=== PATIENT | female | born 1965 | race Caucasian/White ===

== ENCOUNTER 2016-05-11 11:11 | Emergency (ER) | payer BC ==
[~2016-05-11] VITALS: Ht 170.2 cm; Wt 86.0 kg
[~2016-05-11 11:11] MED LIST: CYCL5TAB PO; ESCI10TA PO; ESTR0.053 TD; LISI10TA3 PO; MEDR4PAK PO; RANI150C PO
[2016-05-11 11:19] VITALS: BP 118/75; PULSE 72; RESP 14; TEMP 98; O2SAT 99
[2016-05-11 12:14] LABS: BASOPHIL % 0.5 % (0.0-2.0); EOSINOPHIL # 0.1 TH/MM3 (0-0.4); HEMO FLAGS DIFF FINAL; MEAN CELL VOLUME 90.8 FL (80.0-100.0); MEAN CORPUSCULAR HEMOGLOBIN 31.2 PG (27.0-34.0); MEAN CORPUSCULAR HGB CONC 34.3 % (32.0-36.0); MONO % 6.9 % (0.0-8.0); NEUT % 71.6 % (16.0-70.0); PLATELET COUNT 198 TH/MM3 (150-450); RED BLOOD COUNT 4.41 MIL/MM3 (4.00-5.30); RED CELL DISTRIBUTION WIDTH 13.5 % (11.6-17.2); WHITE BLOOD COUNT 5.5 TH/MM3 (4.0-11.0)
[2016-05-11 12:33] LABS: ALT (GPT) 35 U/L (10-53); ANION GAP 9 MEQ/L (5-15); AST (GOT) 19 U/L (15-37); BICARBONATE 28.3 MEQ/L (21.0-32.0); BLOOD UREA NITROGEN 12 MG/DL (7-18); CHLORIDE 104 MEQ/L (98-107); GLOMERULAR FILTRATION RATE 76 ML/MIN (>89); SODIUM (NA) 141 MEQ/L (136-145)
[2016-05-11 12:36] LABS: ALKALINE PHOSPHATASE 87 U/L (45-117); TOTAL BILIRUBIN ADULT 0.3 MG/DL (0.2-1.0)
[2016-05-11] MEDS ORDERED: ZOFR4TAB3 SL (12:42)
[2016-05-11] MEDS ORDERED: BENT20TA PO (12:42)
--- NOTE | 2016-05-11 12:42 | PD ---
HPI Chief Complaint: GI Complaint Time Seen by Provider: 11:51 Travel History International Travel<30 days: No Contact w/Intl Traveler<30days: No Traveled to known affect area: No History of Present Illness HPI 51-year-old woman who presents emergency Department with a history of GERD and stomach issues for quite some time but worse over the past year, especially bad over the past couple days. She sees a GI doctor but they can get her into next week. She states she's been having vomiting after she eats as well as some occasional diarrhea. She also has worsening low back pain. History Past Medical History Narrative Medical Hypertension GERD Tetanus Vaccination: > 5 Years Social History Alcohol Use: Yes (WINE OCCAS) Tobacco Use: No Allergies-Medications (Allergen,Severity, Reaction): Coded Allergies: Codeine (Verified Allergy, Severe, 05/11/16) STATES CAUSES NAUSEA AND VOMITTING ONLY. Reported Meds & Prescriptions Reported Meds & Active Scripts Active Lisinopril 10 Mg Tab 10 Mg PO DAILY Reported Ranitidine (Ranitidine HCl) 150 Mg Cap 150 Mg PO BID Review of Systems Except as stated in HPI: all other systems reviewed are Neg Physical Exam Narrative GENERAL: Well-appearing 51 year-old woman, no acute distress. SKIN: Warm and dry. HEAD: Atraumatic. Normocephalic. CARDIOVASCULAR: Regular rate and rhythm. No murmur appreciated. RESPIRATORY: No accessory muscle use. Clear to auscultation. Breath sounds equal bilaterally. GASTROINTESTINAL: Abdomen soft, non-tender, nondistended. Hepatic and splenic margins not palpable. MUSCULOSKELETAL: No obvious deformities. No edema. NEUROLOGICAL: Awake and alert. No obvious cranial nerve deficits. Motor grossly within normal limits. Normal speech. PSYCHIATRIC: Appropriate mood and affect; insight and judgment normal. Data Data Last Documented VS Vital Signs Date Time Temp Pulse Resp B/P Pulse Ox O2 Delivery O2 Flow Rate FiO2 05/11/16 11:19 98.0 72 14 118/75 99 Room Air Orders Complete Blood Count With Diff (05/11/16 11:51) Comprehensive Metabolic Panel (05/11/16 11:51) Lipase (05/11/16 11:51) Iv Access Insert/Monitor (05/11/16 11:51) Labs Laboratory Tests Test 05/11/16 11:59 White Blood Count 5.5 TH/MM3 Red Blood Count 4.41 MIL/MM3 Hemoglobin 13.7 GM/DL Hematocrit 40.0 % Mean Corpuscular Volume 90.8 FL Mean Corpuscular Hemoglobin 31.2 PG Mean Corpuscular Hemoglobin 34.3 % Concent Red Cell Distribution Width 13.5 % Platelet Count 198 TH/MM3 Mean Platelet Volume 9.1 FL Neutrophils (%) (Auto) 71.6 % Lymphocytes (%) (Auto) 19.0 % Monocytes (%) (Auto) 6.9 % Eosinophils (%) (Auto) 2.0 % Basophils (%) (Auto) 0.5 % Neutrophils # (Auto) 4.0 TH/MM3 Lymphocytes # (Auto) 1.0 TH/MM3 Monocytes # (Auto) 0.4 TH/MM3 Eosinophils # (Auto) 0.1 TH/MM3 Basophils # (Auto) 0.0 TH/MM3 CBC Comment DIFF FINAL Differential Comment Sodium Level 141 MEQ/L Potassium Level 4.0 MEQ/L Chloride Level 104 MEQ/L Carbon Dioxide Level 28.3 MEQ/L Anion Gap 9 MEQ/L Blood Urea Nitrogen 12 MG/DL Creatinine 0.80 MG/DL Estimat Glomerular Filtration 76 ML/MIN Rate Random Glucose 102 MG/DL Calcium Level 9.1 MG/DL Aspartate Amino Transf 19 U/L (AST/SGOT) Alanine Aminotransferase 35 U/L (ALT/SGPT) Albumin 3.7 GM/DL Lipase 236 U/L [facility] Medical Decision Making Medical Screen Exam Complete: Yes Emergency Medical Condition: Yes Interpretation(s) LABS: CBC is unremarkable CMP is unremarkable Lipase is normal Differential Diagnosis Acute chronic abdominal pain, IBS, gastritis, other Narrative Course Medical decision making 51 year-old woman with acute on chronic abdominal pain. Looks well. Benign abdomen. Recommend supportive treatment. Diagnosis Primary Impression: Abdominal pain Qualified Code: R10.84 - Generalized abdominal pain Additional Instructions: Continue ranitidine as prescribed. Use Zofran as a for nausea or vomiting. Use Bentyl as needed for abdominal cramping. Continue treadmill. Follow up with your gastroenterology doctor. Med/Other Pt SpecificInfo: Prescription(s) given Scripts Dicyclomine (Bentyl)20 Mg Tab20 Mg PO QID PRN (ABDOMINAL CRAMPING) #20 TAB Prov:Lazaro Lagunas MD 05/11/16 Ondansetron Odt (Zofran Odt)4 Mg Tab4 Mg SL Q8HR PRN (Nausea/Vomiting) #15 TAB May substitute non-ODT form. Prov:Lazaro Lagunas MD 05/11/16 Disposition: 01 DISCHARGE HOME Condition: Stable Lazaro Lagunas MD May 11, 2016 12:42
[2016-06-09] MEDS ORDERED: LOPE7.5C PO (14:27)
[2016-06-09] MEDS ORDERED: METR-1 PO (14:27)
[2016-06-09] MEDS ORDERED: CIPR-9 PO (14:27)
[2016-06-20] MEDS ORDERED: QUES4POW PO (14:28)
[2016-07-13] MEDS ORDERED: FLUO-1 PO (15:18)
== END 2016-05-11 13:29 | disposition home or self-care (01) ==
LOC: NEPB 11:11
DX: R10.9 Unspecified abdominal pain (principal); I10 Essential (primary) hypertension
CPT/HCPCS: 80053; 83690; 85025; 99284